=== PATIENT | female | born 1960 | race Asian ===

== ENCOUNTER 2024-06-05 09:53 | Day surgery (SDC) | payer OTHER ==
[~2024-06-05] VITALS: Ht 157.5 cm; Wt 58.2 kg
[2024-06-05] VITALS (13 sets, daily range): BP systolic 97–142; BP diastolic 57–102
[~2024-06-05 09:53] MED LIST: ALBU90OI INH; CLIMARA1 EACH TOP; NS 500 ML IV SCH; PROG100 PO; Prinivil10 MG PO; WIXELA 100-501 EAC1
--- NOTE | 2024-06-05 10:46 | NUR ---
Ambulatory in Day Surgery History, Chart, Medications and Allergies reviewed before start of procedure. Pre-Op teaching done. Pt verbalizes understanding. Patient States Post-Procedure ride home has been arranged.
[2024-06-05] MEDS ORDERED: propofoL 20 ML IV ONE (11:24)
--- NOTE | 2024-06-05 11:39 | NUR ---
06/05/24 Erum Bassett CONFIRMED AND REVIEWED H&P, MEDCICATIONS, ALLERGIES, MEDICAL HISTORY, RESPIRATORY HISTORY, VITAL SIGNS, 3-LEAD EKG, CONSENTS, AND PHYSICIAN ORDERS. PATIENT CONFIRMS NPO STATUS AND AGREES WITH SCHEDULED PROCEDURE. MONITOR INTACT WITH CONTINUOUS PULSE OXIMETRY, CAPNOGRAPHY, 3-LEAD EKG, INTERMITTENT BP. SUPPLEMENTAL O2 TO BE TITRATED THROUGHOUT PROCEDURE TO MAINTAIN O2 SATURATION ABOVE 90%. PATIENT DETERMINED TO BE ASA APPROPRIATE FOR PROPOFOL SEDATION PRIOR TO START OF PROCEDURE BY DR. JOSEPH.
--- NOTE | 2024-06-05 12:16 | NUR ---
Discharge instructions reviewed with patient. Patient verbalizes understanding. Copy given to patient to take home. Patient States Post-Procedure ride home has been arranged. Discharged via wheelchair to private car for ride home.
== END 2024-06-05 12:18 | disposition home or self-care (01) ==
LOC: ORSCMMR 09:53 → ORD 11:00 → ORSCMMR 11:00
PROVIDERS: Internal Medicine Gastroenterology
PROC: 0DJD8ZZ Inspection of Lower Intestinal Tract, Via Natural or Artificial Opening Endoscopic (ICD-10-PCS; principal; 2024-06-05 11:00)
DX: Z12.11 Encounter for screening for malignant neoplasm of colon (principal); D12.0 Benign neoplasm of cecum; I10 Essential (primary) hypertension; J45.909 Unspecified asthma, uncomplicated; Z87.891 Personal history of nicotine dependence; Z79.899 Other long term (current) drug therapy
CPT/HCPCS: 88305; J2704; J7040